=== PATIENT | male | born 1960 | race Caucasian/White ===

== ENCOUNTER 2020-05-23 22:41 | Inpatient (IN) | payer MEDICAID, SELFPAY ==
[~2020-05-23] VITALS: Ht 180.3 cm; Wt 78.9 kg
--- NOTE | 2020-05-23 22:43 | NUR ---
AUDREY FROM HOME, TAKEN TO BED #2
[2020-05-23] MEDS ORDERED: NACL 0.9% 1,000 ML IV SCH (22:51)
[2020-05-23 22:52] VITALS: BP 102/75
[2020-05-23] MEDS ORDERED: cefTRIAXone 1,000 MG in DEXT 5% MINI-BAG PLUS 50 ML IV ONE (22:55)
[2020-05-23] MEDS ORDERED: cefTRIAXone 1,000 MG VIAL ONE (23:00)
--- NOTE | 2020-05-23 23:00 | NUR ---
60 YO M BIBA FOR C/C OF GENERALIZED WEAKNESS AND SOB WITH NON PRODUCTIVE COUGH X3 DAYS. PT IS A&0 X3 AND STATES HE HAS NOT BEEN IN CONTACT WITH ANY COVID POSITIVE PTS. S1S2 HEARD, LUNG SOUNDS ARE CLEAR THROUGHOUT, BOWEL SOUNDS NORMOACTIVE THROUGHOUT. PT STATES HE HAS HAD CHANGES IN APPETITE WITH NAUSEA AND NO VOMITING OR DIARRHEA. PERIPHERAL PULESES ARE EQUAL AND REGULAR. PT STATES HIS LEGS BEGAN SWELLING YESTERDAY, 2 + NON PITTING EDEMAL IN BLE. PT PLACED ON UPHOLSTERY AUTO TRIMMER AND 2L NC FOR COMFORT. BED LOCKED AND IN LOWEST POSITION. SIDE RAILS X2. NKA NO MED HX NO RX
--- NOTE | 2020-05-23 23:10 | NUR ---
IV ESTABLISHED. BLOOD COLLECTED AND SENT TO LAB.
--- NOTE | 2020-05-23 23:25 | NUR ---
COVID SWAB AND URINE COLLECTED AND SENT TO LAB
[2020-05-23 23:28] LABS: BASOPHILS # (AUTO) 0.1 K/uL (0.00-0.22); BASOPHILS % (AUTO) 0.8 % (0.0-2.0); EOSINOPHILS % (AUTO) 0.2 % (0.0-4.0); HEMATOCRIT 46.4 % (36-52); HEMOGLOBIN 14.9 g/dL (12.0-18.0); LYMPHOCYTES # (AUTO) 1.4 K/uL (2.0-11.5); LYMPHOCYTES % (AUTO) 11.9 % (20.5-51.1); MEAN CORPUSCULAR HEMOGLOBIN 30 pg (27-31); MEAN CORPUSCULAR HGB CONC 32 g/dL (33-37); MEAN CORPUSCULAR VOLUME 94.4 fL (80-94); MONOCYTES # (AUTO) 1.4 K/uL (0.8-1.0); MONOCYTES % (AUTO) 11.9 % (1.7-9.3); NEUTROPHILS # (AUTO) 9.1 K/uL (1.8-7.7); NEUTROPHILS % (AUTO) 75.2 % (42.2-75.2); PLATELET COUNT (AUTO) 154 K/uL (140-450); RED BLOOD CELL COUNT(AUTO) 4.92 MIL/uL (4.20-6.10); RED CELL DISTRIBUTION WIDTH 14.9 % (11.6-13.7); WHITE BLOOD COUNT (AUTO) 12.1 K/uL (4.8-10.8)
[2020-05-23 23:42] LABS: APPEARANCE,URINE CLEAR (CLEAR); BILIRUBIN,URINE 2+ (NEGATIVE); BLOOD, URINE TRACE-I (NEGATIVE); COLOR,URINE AMBER (YELLOW); LEUKOCYTE ESTERASE ,URINE NEGATIVE (NEGATIVE); NITRITE, URINE NEGATIVE (NEGATIVE); PH,URINE 5.5 (5.0-9.0); UGLUCOSE NEGATIVE (NEGATIVE)
[2020-05-23 23:43] LABS: ANION GAP 16.8 (8-16); CARBON DIOXIDE 22.8 mmol/L (21-32); CREATININE 1.5 mg/dL (0.6-1.3); POTASSIUM 4.6 mmol/L (3.5-5.1); TOTAL BILIRUBIN 2.4 mg/dL (0.0-1.0)
--- NOTE | 2020-05-23 23:46 | NUR ---
RAD AT BEDSIDE
[2020-05-23 23:59] LABS: RBC,URINE 0-5 /HPF (0-5); WBC,URINE 0-5 /HPF (0-5)
--- NOTE | 2020-05-24 01:38 | NUR ---
PT SLEEPING COMFORTABLY IN BED. EQUAL CHEST RISE AND FALL. SAFETY MEASURES IN PLACE.
[2020-05-24] MEDS ORDERED: HYDROcodone/APAP 5/325 MG 1 TAB TAB PO PRN (01:45)
[2020-05-24] MEDS ORDERED: FUROSEMIDE 40 MG/4 ML VIAL IVP SCH (01:45)
[2020-05-24] MEDS ORDERED: MORPHINE SULFATE 2 MG/ML SYR IVP PRN (01:45)
[2020-05-24] MEDS ORDERED: ONDANSETRON 4 MG/2 ML VIAL IM/IVP PRN (01:45)
[2020-05-24] MEDS ORDERED: DOCUSATE SODIUM 100 MG GELCAP PO PRN (01:45)
[2020-05-24] MEDS ORDERED: ACETAMINOPHEN 325 MG TAB PO PRN (01:45)
[2020-05-24 02:36] LABS: MAGNESIUM 1.8 mg/dL (1.8-2.4); PHOSPHORUS 4.3 mg/dL (2.5-4.9); THYROID STIMULATING HORMONE 3.17 uIU/mL (0.34-3.74)
--- NOTE | 2020-05-24 02:39 | NUR ---
PT SLEEPING COMFORTABLY IN BED. EQUAL CHEST RISE AND FALL. SAFETY MEASURES IN PLACE.
[2020-05-24 02:46] LABS: PROTHROMBIN TIME 16.4 secs (10.8-13.4)
[2020-05-24 02:57] LABS: BARBITURATE, URINE NEGATIVE ng/ml (NEG <=200); BENZODIAZEPINE, URINE NEGATIVE ng/mL (NEG <=200); CANNABINOID, URINE NEGATIVE ng/mL (NEG <=50); COCAINE, URINE NEGATIVE ng/mL (NEG <=300); OPIATE, URINE NEGATIVE ng/mL (NEG <=2000); PHENCYCLIDINE SCREEN,URINE NEGATIVE ng/mL (NEG <=25)
--- NOTE | 2020-05-24 03:15 | NUR ---
GAVE IVP OF 40 MG LASIX AFTER VERBAL ORDER FROM ADMITTING PHYSICIAN
[2020-05-24] MEDS ORDERED: FUROSEMIDE 40 MG/4 ML VIAL IVP ONE (03:17)
--- NOTE | 2020-05-24 04:09 | NUR ---
[facility] LAB VALUE REPORTING: LACTIC ACID: 2.4 JUANPABLO HOFFMANN.
[2020-05-24] MEDS ORDERED: NACL 0.9% 250 ML IV SCH (04:15)
--- NOTE | 2020-05-24 04:30 | NUR ---
PT SLEEPING COMFORTABLY IN BED. EQUAL CHEST RISE AND FALL. SAFETY MEASURES IN PLACE.
--- NOTE | 2020-05-24 05:45 | NUR ---
MRSA SWAB COLLECTED AND SENT TO LAB
[2020-05-24] MEDS ORDERED: cefTRIAXone 1,000 MG VIAL ONE (05:49)
[2020-05-24] MEDS: NACL 0.9% 1,000 ML IV SCH (06:45)
[2020-05-24 06:56] LABS: BASOPHILS # (AUTO) 0.1 K/uL (0.00-0.22); BASOPHILS % (AUTO) 0.6 % (0.0-2.0); EOSINOPHILS % (AUTO) 0.3 % (0.0-4.0); HEMATOCRIT 43.7 % (36-52); HEMOGLOBIN 14.2 g/dL (12.0-18.0); LYMPHOCYTES # (AUTO) 1.5 K/uL (2.0-11.5); LYMPHOCYTES % (AUTO) 11.9 % (20.5-51.1); MEAN CORPUSCULAR HEMOGLOBIN 31 pg (27-31); MEAN CORPUSCULAR HGB CONC 33 g/dL (33-37); MEAN CORPUSCULAR VOLUME 93.7 fL (80-94); MONOCYTES # (AUTO) 1.4 K/uL (0.8-1.0); MONOCYTES % (AUTO) 10.9 % (1.7-9.3); NEUTROPHILS # (AUTO) 9.8 K/uL (1.8-7.7); NEUTROPHILS % (AUTO) 76.3 % (42.2-75.2); PLATELET COUNT (AUTO) 142 K/uL (140-450); RED BLOOD CELL COUNT(AUTO) 4.66 MIL/uL (4.20-6.10); WHITE BLOOD COUNT (AUTO) 12.8 K/uL (4.8-10.8)
[2020-05-24 07:06] LABS: ANION GAP 17.7 (8-16); CARBON DIOXIDE 20.2 mmol/L (21-32); CREATININE 1.2 mg/dL (0.6-1.3); POTASSIUM 3.9 mmol/L (3.5-5.1)
[2020-05-24 07:12] LABS: CHOL/HDL RATIO 4.3 (1-4.5)
[2020-05-24 07:16] LABS: MAGNESIUM 1.7 mg/dL (1.8-2.4); PHOSPHORUS 3.7 mg/dL (2.5-4.9)
[2020-05-24 07:50] VITALS: BP 121/74
--- NOTE | 2020-05-24 07:50 | NUR ---
Patient will be admitted to care of [facility]. Admited to ICU. Will go to room 7. Belongings list completed. Report to COLIN OLIVARES.
--- NOTE | 2020-05-24 07:50 | NUR ---
PT ADMITTED FROM ER AT THIS TIME. PT AAOX4, NO DISTRESS NOTED, DENIES PAIN, COOPERATIVE. RESPIRATIONS EVEN AND UNLABORED ON O2 VIA NC AT 2L. IV IN PLACE, PATENT AND ASYMPTOMATIC INFUSING PER ORDER IN L AC 20G. VITALS UPON ADMISSION: HR 97, BP 121/74, O2 SAT 96% RR 22, TEMP 97.6. PT BREATHING THROUGH MOUTH INSTRUCTED TO BREATH THROUGH NOSE INCREASING O2 SAT. SKIN INTACT. CONTINENT. DROPLET PRECAUTIONS IN PLACE FOR R/O COVID-19. SAFETY MEASURES IN PLACE, CALL LIGHT WITHIN REACH. BED IN LOW POSITION. WILL CONTINUE TO MONITOR.
[2020-05-24] MEDS ORDERED: LOVENOX 1MG/KG Q12H SUBQ SCH (08:50)
[2020-05-24] MEDS ORDERED: AZITHROMYCIN 500 MG in DEXTROSE 5% 250 ML IV SCH (09:00)
[2020-05-24] MEDS: LACTOBACILLUS RHAMNOSUS GG 1 EACH CAP PO SCH (09:10)
[2020-05-24] MEDS: FUROSEMIDE 20 MG/2 ML VIAL IVP SCH ×2 (09:10→20:41)
--- NOTE | 2020-05-24 09:24 | NUR ---
MEDICATIONS ADMINISTERED PER ORDER. PT TOLERATED WELL, NO DISTRESS NOTED. DENIES PAIN. RESPIRATIONS EVEN AND UNLABORED ON 2L O2 VIA NC. EATING BREAKFAST AT THIS TIME. WILL CONTINUE TO MONITOR.
[2020-05-24] MEDS ORDERED: MAG SULF 2000 MG/WATER PREMIX 50 ML IV SCH (09:30)
[2020-05-24 10:30] VITALS: BP 99/71
--- NOTE | 2020-05-24 11:52 | NUR ---
PT IN BED ASLEEP, NO DISTRESS NOTED. RESPIRATIONS EVEN AND UNLABORED ON O2 VIA NC. SAFETY MEASURES IN PLACE. CALL LIGHT WITHIN REACH, WILL CONTINUE TO MONITOR.
[2020-05-24 12:00] VITALS: BP 102/81
--- NOTE | 2020-05-24 13:50 | NUR ---
FINANCIAL SYSTEMS MANAGER NOTE: SW CONTACTED ICU NURSING STATION AND SPOKE TO DAVIE. SW REQUESTED TO SPEAK TO PATIENT. SW WAS UNABLE TO MEET WITH PATIENT AT BEDSIDE DUE TO MEDICAL CONDITION. DAVIE TRANSFERRED SW TO COLIN OLIVARES. ELISE STATED THAT HE WOULD HAVE PATIENT CALL SW BACK. Addendum: 05/24/20 at 1419 by Serge SIMS [facility] Patient: Jose Alfredo Mckeon : 1960 Age/Sex: 60/M Unit#: [id number] Room/Bed: IC07/A User: Serge SIMS Date: 05/24/20 14:08 Type: CM Discharge Plan Assessment Patient's Orientation Person Situation Place Time Information Provided By PATIENT Biotech Production Specialist, Realtionship and Phone Number N/A - PATIENT STATED THAT HE WILL PROVIDE NURSING STAFF WITH EMERGENCY CONTACT. Healthcare Power of Geological E Logger No Does Patient Have a POLST No Identifying Problems No Social Work Triggers Is A Social Work Consult Needed No Mandate Report Filed No Explanation Of Identifying Problems PATIENT IS A 60-YEAR-OLD MALE ADMITTED FOR PNEUMONIA AND COVID R/O. PATIENT DENIES PMHX. Admitted From Home Pre-Admission Level Of Functioning Status Independent/Ambulatory Prior Resources/Services Used In Last 12 Months No Prior Resources Used Prior DME No Prior DME Used Living Situation Apartment 2 Story Patient Had Caregiver No Home Support No Caregiver Issues Explanation Of Home Support PATIENT LIVES WITH A ROOMMATE. Financial Issues No Known Financial Issue Factors/Needs No D/C Needs Identified Pt/Rep Participated In Discharge Plan Yes Discharge Plan Comments TENTATIVE DISCHARGE PLAN IS FOR PATIENT TO RETURN HOME. DC Plan Status Initiated
[2020-05-24 14:00] VITALS: BP 107/81
--- NOTE | 2020-05-24 14:13 | NUR ---
PT GIVEN PHONE TO TALK TO LUIS ANTONIO FROM CASE MANAGEMENT.
--- NOTE | 2020-05-24 15:28 | NUR ---
05/24/20 RD INITIAL ASSESSMENT COMPLETED PLEASE REFER TO NUTRITION ASSESSMENT UNDER CARE ACTIVITY FOR ESTIMATED NUTRITIONAL NEEDS. 1. RECOMMEND MECHANICAL SOFT CARDIAC DIET TOLERATED 2. RECOMMEND ENSURE TID 3. ENCOURAGE INCREASING PO INTAKE 4. RD TO FOLLOW-UP 2-3 DAYS, HIGH RISK ZAIN KOLB, RD
--- NOTE | 2020-05-24 15:35 | NUR ---
DISCHARGE PLANNING: THIS IS A 60 Y/O MALE PATIENT FROM HOME, WHO IS BIBA DUE TO SOB, COUGH AND GENERALIZED WEAKNESS. NO PAST MEDICAL HISTORY. INITIAL DIAGNOSIS OF PNA; POSSIBLE COVID. CURRENT LABS INCLUDE WBC 12.8, H/H 14.2/43.7, NA/K 137/3.9, BUN/CREA 26/1.2, LACTIC ACID 2.3 AND MAG 1.7 AND AMMONIA 53. UDS POSITIVE. COVID PENDING. ON O2 AT 2LPM/NC. DC PLAN PENDING ON PATIENT'S RESPONSE TO TREATMENT. Addendum: 05/25/20 at 1539 by Marbella Garcia CM ON O2 AT 2 LPM/NC, O2 SAT 94%. ON AZITHROMYCIN, ROCEPHIN AND LASIX IV. FOR THORACENTESIS TODAY. ECHO DONE. CARDIO AND PULMO CONSULTS IN PLACE. Addendum: 05/28/20 at 1057 by Marbella Garcia CM FOR PA HOME TODAY.
--- NOTE | 2020-05-24 16:37 | NUR ---
PT RESTING IN BED, NO DISTRESS NOTED, DENIES PAIN, RESPIRATIONS EVEN AND UNLABORED ON 2L O2 VIA NC. SAFETY MEASURES IN PLACE. WILL CONTINUE TO MONITOR.
--- NOTE | 2020-05-24 18:14 | NUR ---
Echocardiogram pending.
--- NOTE | 2020-05-24 18:55 | NUR ---
PT OFFERED HIS DINNER, STATES HE IS NOT TOO HUNGRY BUT WILL TRY TO EAT. DENIES PAIN, NO DISTRESS NOTED. RESPIRATIONS EVEN AND UNLABORED ON 2L O2 VIA NC. SAFETY MEASURES IN PLACE, CALL LIGHT WITHIN REACH. WILL CONTINUE TO MONITOR.
--- NOTE | 2020-05-24 19:23 | NUR ---
REPORT GIVEN TO NIGHT NURSE FOR CONTINUITY OF CARE.
[2020-05-24 20:00] VITALS: BP 119/80
--- NOTE | 2020-05-24 20:30 | NUR ---
PT TRANSFERRED TO TELEMETRY FLOOR REPORT GIVEN TO RN NO SIGNS OF DISTRESS AT TIME OF TRANSFER
--- NOTE | 2020-05-24 20:31 | NUR ---
REPORT RECEIVED FROM ICU NURSE AT BEDSIDE. PT IN STABLE CONDITION. AAOX4. INTRODUCED SELF TO PT. NO COMPLAINTS OF PAIN. PT SOB AT TIMES ON RA BUT DOES NOT REQUIRE O2. AFEBRILE. PT IS AMBULATORY. PT HAS BATHROOM PRIVILEGES. PT ON REGULAR DIET. IV SITE L AC 20G RUNNING NS@10ML/HR TKO PATENT AND INTACT. SKIN WARM, DRY, AND INTACT WITH NO OPEN WOUNDS. BED LOCKED IN LOW POSITION. CALL [place] WITHIN REACH. SAFETY PRECAUTIONS IN PLACE. ALL NEEDS MET AT THIS TIME.
[2020-05-24] MEDS: ENOXAPARIN 80 MG/0.8 ML SYR SUBQ SCH (20:42)
--- NOTE | 2020-05-24 20:42 | NUR ---
LASIX GIVEN IVP. LOVENOX GIVEN SUBQ. PT TOLERATED WELL.
--- NOTE | 2020-05-24 22:20 | NUR ---
PT AWAKE AND ALERT WATCHING TV. NO S/S OF DISTRESS NOTED. WILL CONTINUE TO MONITOR.
[2020-05-25] VITALS: BP 108/78
--- NOTE | 2020-05-25 00:15 | NUR ---
PT AWAKE AND ALERT HAVING A SANDWICH. PT SHOWS NO S/S OF DISTRESS. NO COMPLAINTS OF PAIN. NO SOB. AFEBRILE. WILL CONTINUE TO MONITOR.
[2020-05-25] MEDS: NACL 0.9% 1,000 ML IV SCH (01:41)
--- NOTE | 2020-05-25 02:15 | NUR ---
PT SLEEPING COMFORTABLY BUT AROUSABLE. NO S/S OF DISTRESS NOTED. RESPIRATIONS EVEN, UNLABORED, AND WNL. WILL CONTINUE TO MONITOR.
[2020-05-25 04:00] VITALS: BP 111/77
--- NOTE | 2020-05-25 05:45 | NUR ---
JHON MEZA AND RUNNING.
--- NOTE | 2020-05-25 07:21 | NUR ---
RECEIVED REPORT FROM CNC OPERATOR MACHINIST RN FOR CONTINUITY OF CARE. PT IS AAOX4, COOPERATIVE AND ABLE TO MAKE NEEDS KNOWN. PT ON 2L NC SATING 96%. SKIN INTACT. PT HAS LEFT AC 20G INFUSING NS @ 20ML/HR. DISCUSSED POC WITH PT AND PT VERBALIZED UNDERSTANDING. ALL SAFETY MEASURES IN PLACE. WILL ROUND FREQUENTLY ON PT. THROUGHOUT THE SHIFT.
[2020-05-25 08:00] VITALS: BP 113/69
[2020-05-25 08:06] LABS: BASOPHILS # (AUTO) 0.1 K/uL (0.00-0.22); BASOPHILS % (AUTO) 0.9 % (0.0-2.0); EOSINOPHILS % (AUTO) 0.2 % (0.0-4.0); HEMATOCRIT 44.8 % (36-52); HEMOGLOBIN 14.6 g/dL (12.0-18.0); LYMPHOCYTES # (AUTO) 1.4 K/uL (2.0-11.5); LYMPHOCYTES % (AUTO) 10.7 % (20.5-51.1); MEAN CORPUSCULAR HEMOGLOBIN 31 pg (27-31); MEAN CORPUSCULAR HGB CONC 33 g/dL (33-37); MEAN CORPUSCULAR VOLUME 93.7 fL (80-94); MONOCYTES # (AUTO) 1.3 K/uL (0.8-1.0); NEUTROPHILS # (AUTO) 10.5 K/uL (1.8-7.7); NEUTROPHILS % (AUTO) 78.2 % (42.2-75.2); PLATELET COUNT (AUTO) 154 K/uL (140-450); RED BLOOD CELL COUNT(AUTO) 4.78 MIL/uL (4.20-6.10); RED CELL DISTRIBUTION WIDTH 15.3 % (11.6-13.7); WHITE BLOOD COUNT (AUTO) 13.4 K/uL (4.8-10.8)
[2020-05-25 08:08] LABS: ALBUMIN 2.7 g/dL (3.4-5.0); ANION GAP 17.5 (8-16); CARBON DIOXIDE 21.6 mmol/L (21-32); CREATININE 1.3 mg/dL (0.6-1.3); POTASSIUM 4.1 mmol/L (3.5-5.1)
[2020-05-25 08:18] LABS: HEPATITIS A ANTIBODY IGM Negative (Negative); HEPATITIS B CORE AB TOTAL Negative (Negative); HEPATITIS B SURFACE ANTIBODY Non Reactive (.); HEPATITIS B SURFACE ANTIGEN Negative (Negative)
[2020-05-25] MEDS: ENOXAPARIN 80 MG/0.8 ML SYR SUBQ SCH ×2 (09:00→22:00)
[2020-05-25] MEDS: AZITHROMYCIN 250 MG in DEXTROSE 5% 250 ML IV SCH (09:01)
[2020-05-25] MEDS: LACTOBACILLUS RHAMNOSUS GG 1 EACH CAP PO SCH (09:02)
[2020-05-25] MEDS: FUROSEMIDE 20 MG/2 ML VIAL IVP SCH ×3 (09:02→22:01)
--- NOTE | 2020-05-25 09:21 | NUR ---
ADMIN MORNING MEDS. PT TOLERATED WELL. ALL NEEDS MET. WILL CONTINUE TO ROUND FREQ ON PT.
[2020-05-25 09:46] LABS: PHOSPHORUS 3.5 mg/dL (2.5-4.9)
--- NOTE | 2020-05-25 11:45 | NUR ---
PT RESTING IN BED. ALL NEEDS MET,
[2020-05-25 12:00] VITALS: BP 119/71
--- NOTE | 2020-05-25 13:40 | NUR ---
PT ASLEEP. ALL NEEDS MET
--- NOTE | 2020-05-25 15:42 | NUR ---
PT WATCHING TV. ALL NEEDS MET.,
[2020-05-25 16:00] VITALS: BP 108/79
--- NOTE | 2020-05-25 17:58 | NUR ---
PT EATING DINNER. ALL NEEDS MET.
--- NOTE | 2020-05-25 19:04 | NUR ---
WILL ENDORSE PT TO PIANO CASE AND BENCH ASSEMBLER FOR CONTINUITY OF CARE. PT IN STABLE CONDITION AT THIS TIME.
--- NOTE | 2020-05-25 19:05 | NUR ---
RECEIVED ENDORSEMENT FROM AM SHIFT RN. PATIENT IS AOX4. ON 2LPM NC SATTING AT 98%. NO SOB, DENIES PAIN. IV SITE AT LAC 20G. INTACT. ASSESSMENT DONE. TELE MONITOR ATTACHED. PLAN OF CARE WAS DISCUSSED, CALL LIGHT WITHIN REACH, WILL CONTINUE TO MONITOR.
[2020-05-25 20:00] VITALS: BP 91/60
--- NOTE | 2020-05-25 21:45 | NUR ---
HELD LASIX 20MG IVP DUE TO LOW BP OF 91/60. HR 94. DR. LOPEZ AWARE. WILL CONTINUE TO MONITOR.
[2020-05-25 22:19] LABS: APPEARANCE,SPUN,BODY FLUID HAZY (CLEAR); APPEARANCE,UNSPUN,BODY FLUID SLIGHTLY CLOUDY (CLEAR); COLOR,BODY FLUID LT YELLOW (LT YELLOW); SPECIMENTYPE,BODY FLUID THORACENTESIS
[2020-05-25 22:22] LABS: RBC, BODY FLUID 277 /cu. mm.; TOTAL VOLUME,BODY FLUID 1100 mL; WBC, BODY FLUID 109 /cu. mm.
[2020-05-25 22:29] LABS: POLYNUCLEAR, BODY FLUID 11 %
[2020-05-26] VITALS: BP 93/63
--- NOTE | 2020-05-26 | NUR ---
V/S TAKEN AND RECORDED. KEPT CLEAN, DRY AND COMFORTABLE.
[2020-05-26] MEDS: NACL 0.9% 1,000 ML IV SCH (01:41)
--- NOTE | 2020-05-26 02:00 | NUR ---
PATIENT IS SLEEPING. RESPIRATION EVEN AND UNLABORED. GAVE WARM BLANKET TO PATIENT PER PT REQUEST.
[2020-05-26 04:00] VITALS: BP 103/67
--- NOTE | 2020-05-26 04:30 | NUR ---
PATIENT IS ASLEEP. CALL LIGHT WITHIN REACH. WILL CONTINUE TO MONITOR.
[2020-05-26 05:56] LABS: GLUCOSE,BODY FLUID 137 mg/dL
--- NOTE | 2020-05-26 06:30 | NUR ---
PATIENT IS IN STABLE CONDITION. NO DISTRESS NOTED. WILL ENDORSE TO AM SHIFT RN FOR CONTINUITY OF CARE.
--- NOTE | 2020-05-26 07:30 | NUR ---
RECEIVED BEDSIDE REPORT FROM IRRIGATION FOREMAN NURSE FIORELLA FOR CONTINUITY OF CARE. PT IS AWAKE AND WATCHING TV ON BED AT THIS TIME. RESPIRATION EVEN AND UNLABORED ON 2 LPM VIA NC. DENIED PAIN, SOB AND DIZZINESS. NO SIGNS OF DISTRESS NOTED. IV ON LAC 20, CLEAN AND INTACT, INFUSING NS 10ML/HR. SKIN CLEAN AND DRY. PT IS BED REST AND ABLE TO USE URANAL BY BEDSIDE. ABDOMEN SOFT AND ROUND. TELE MONITOR IN PLACE. SAFETY MEASURES IN PLACE. BED IN LOW POSITION,BED ALARM ACTIVATED, AND CALL LIGHT WITHIN REACH.
[2020-05-26 08:00] VITALS: BP 101/66
[2020-05-26] MEDS: ENOXAPARIN 80 MG/0.8 ML SYR SUBQ SCH ×2 (09:34→21:04)
[2020-05-26] MEDS: AZITHROMYCIN 250 MG in DEXTROSE 5% 250 ML IV SCH (09:36)
[2020-05-26] MEDS: LACTOBACILLUS RHAMNOSUS GG 1 EACH CAP PO SCH (09:36)
[2020-05-26] MEDS: LISINOPRIL 5 MG TAB PO SCH (09:36)
--- NOTE | 2020-05-26 09:39 | NUR ---
ADMINISTERED MEDS PER MD ORDER, MEDS EDUCATION PROVIDED, AND PT VERBALIZED UNDERSTANDING, PT TOLERATED PO AND SUBQ WELL. PT AWAKE AND WATCHING TV AT THIS TIME. DENIED PAIN, SOB AND DIZZINESS. NO SIGNS OF DISTRESS NOTED. TELE MONITOR ATTACHED. SAFETY MEASURES IN PLACE. INSTRUCTED PT TO USE THE CALL LIGHT FOR ANY ASSISTANCE AND PT WAS AWARE.
[2020-05-26 10:46] LABS: BASOPHILS % (AUTO) 0.2 % (0.0-2.0); EOSINOPHILS % (AUTO) 0.2 % (0.0-4.0); HEMATOCRIT 45.3 % (36-52); HEMOGLOBIN 14.8 g/dL (12.0-18.0); LYMPHOCYTES # (AUTO) 1.1 K/uL (2.0-11.5); LYMPHOCYTES % (AUTO) 8.9 % (20.5-51.1); MEAN CORPUSCULAR HEMOGLOBIN 30 pg (27-31); MEAN CORPUSCULAR HGB CONC 33 g/dL (33-37); MEAN CORPUSCULAR VOLUME 93.2 fL (80-94); MONOCYTES # (AUTO) 1.1 K/uL (0.8-1.0); MONOCYTES % (AUTO) 8.8 % (1.7-9.3); NEUTROPHILS # (AUTO) 9.9 K/uL (1.8-7.7); NEUTROPHILS % (AUTO) 81.9 % (42.2-75.2); PLATELET COUNT (AUTO) 175 K/uL (140-450); RED BLOOD CELL COUNT(AUTO) 4.86 MIL/uL (4.20-6.10); RED CELL DISTRIBUTION WIDTH 14.9 % (11.6-13.7); WHITE BLOOD COUNT (AUTO) 12.1 K/uL (4.8-10.8)
[2020-05-26 10:55] LABS: ANION GAP 14.2 (8-16); CARBON DIOXIDE 22.9 mmol/L (21-32); CREATININE 1.2 mg/dL (0.6-1.3); POTASSIUM 4.1 mmol/L (3.5-5.1)
[2020-05-26 11:28] LABS: MAGNESIUM 1.8 mg/dL (1.8-2.4)
--- NOTE | 2020-05-26 11:30 | NUR ---
PT AWAKE AND WATCHING TV ON BED AT THIS TIME. DENIED PAIN, SOB AND DIZZINESS. NO SIGNS OF DISTRESS NOTED. TELE MONITOR ATTACHED AND SAFETY MEASURES IN PLACE. BED IN LOW POSITION AND CALL LIGHT WITHIN REACH. INSTRUCTED PT TO USE THE CALL LIGHT FOR ANY ASSISTANCE AND PT WAS AWARE.
[2020-05-26 12:00] VITALS: BP 99/60
--- NOTE | 2020-05-26 13:40 | NUR ---
PT IS RESTING ON BED AT THIS TIME. DENIED PAIN, SOB AND DIZZINESS. NO SIGNS OF DISTRESS NOTED. TELE MONITOR ATTACHED. SAFETY MEASURES IN PLACE. BED IN LOW POSITION AND CALL LIGHT WITHIN REACH. INSTRUCTED PT TO USE THE CALL LIGHT FOR ANY ASSISTANCE AND PT SAID OK.
--- NOTE | 2020-05-26 15:37 | NUR ---
PATIENT IS ASLEEP COMFORTABLY ON BED, EVEN AND UNLABORED CHEST RISES NOTED. NO SIGNS OF DISTRESS NOTED. TELE MONITOR ATTACHED. SAFETY MEASURES IN PLACE.
--- NOTE | 2020-05-26 15:54 | NUR ---
05/26/2020 FOLLOW UP COMPLETED PLEASE REFER TO NUTRITION PROGRESS NOTE UNDER CARE ACTIVITY FOR ESTIMATED NUTRITION NEEDS. RD RECOMMENDATIONS: 1. CONTINUE MECHANICAL SOFT CARDIAC DIET TOLERATED 2. CONTINUE ENSURE TID 3. ENCOURAGE INCREASING PO INTAKE 4. RD TO FOLLOW-UP 3-5 DAYS, MODERATE RISK. 5. NUTRITION ON HEART HEALTHY DIET PROVIDED TOPT. ALEX ANGEL, RD
[2020-05-26 16:00] VITALS: BP 96/60
--- NOTE | 2020-05-26 17:31 | NUR ---
PT IS WATCHING TV ON BED COMFORTABLY. DENIES PAIN, SOB AND DIZZINESS. NO SIGNS OF DISTRESS NOTED. TELE MONITOR ATTACHED. SAFETY MEASURES IN PLACE. INSTRUCTED PT TO USE THE CALL LIGHT FOR ANY ASSISTANCE AND PT WAS AWARE.
--- NOTE | 2020-05-26 19:21 | NUR ---
RECEIVED PATIENT IN STABLE CONDITION FROM AM SHIFT NURSE FOR CONTINUITY OF CARE. RESPIRATIONS EVEN, UNLABORED. NO C/O PAIN. NO S/S ACUTE DISTRESS. SKIN WARM, DRY. IV SITE NOTED TO LEFT AC 20G PATENT/INTACT, INFUSING FLUIDS WELL. SAFETY PRECAUTIONS IN PLACE. CALL LIGHT WITHIN REACH.
--- NOTE | 2020-05-26 19:21 | NUR ---
ENDORSED PT AT BEDSIDE TO ENGRAVER PANTOGRAPH NURSE FOR CONTINUITY OF CARE. PT IS AWAKE AND WATCHING TV ON BED. NO SIGNS OF DISTRESS NOTED. PT IS IN STABLE CONDITION. TELE MONITOR ATTACHED. SAFETY MEASURES IN PLACE.
[2020-05-26 20:00] VITALS: BP 95/59
--- NOTE | 2020-05-26 21:00 | NUR ---
PATIENT AWAKE AND IN STABLE CONDITION. NO C/O PAIN. NO S/S ACUTE DISTRESS. ENCOURAGED INTAKE TOLERATED. PATIENT VERBALIZED UNDERSTANDING BUT NEEDS REINFORCEMENT. CALL LIGHT WITHIN REACH.
--- NOTE | 2020-05-26 23:10 | NUR ---
PATIENT CONTINUES IN STABLE CONDITION. DUE MEDS GIVEN. NO C/O PAIN. NO S/S ACUTE DISTRESS. CALL LIGHT WITHIN REACH. WILL CONTINUE TO MONITOR.
[2020-05-27] VITALS: BP 98/62
[2020-05-27] MEDS: NACL 0.9% 1,000 ML IV SCH (01:41)
--- NOTE | 2020-05-27 02:05 | NUR ---
PATIENT ASLEEP AND IN STABLE CONDITION. NO S/S ACUTE DISTRESS. CALL LIGHT WITHIN REACH.
[2020-05-27 04:00] VITALS: BP 100/68
--- NOTE | 2020-05-27 04:20 | NUR ---
MADE ROUNDS. PATIENT CONTINUES IN STABLE CONDITION. NO S/S ACUTE DISTRESS. CALL LIGHT WITHIN REACH.
--- NOTE | 2020-05-27 06:23 | NUR ---
PATIENT ASLEEP. DUE MEDS GIVEN ORDERED. NO S/S ACUTE DISTRESS. CALL LIGHT WITHIN REACH.
--- NOTE | 2020-05-27 07:10 | NUR ---
RECEIVED PATIENT IN STABLE CONDITION FROM DRESSING ROOM PORTER RN, SYLVIA, FOR CONTINUITY OF CARE. PATIENT ASLEEP AND IN BED. RESPIRATIONS EVEN, UNLABORED. NO C/O PAIN. NO S/S ACUTE DISTRESS. SKIN WARM, DRY. IV SITE NOTED TO LEFT AC 20G PATENT/INTACT WITH NS RUNNING AT 10ML/HR, INFUSING FLUIDS WELL. SAFETY PRECAUTIONS IN PLACE. CALL LIGHT WITHIN REACH. POC IS DISCUSSED. WILL CONTINUE TO MONITOR.
[2020-05-27 07:14] LABS: ANION GAP 10.9 (8-16); CARBON DIOXIDE 22.9 mmol/L (21-32); CREATININE 1.1 mg/dL (0.6-1.3); POTASSIUM 3.8 mmol/L (3.5-5.1)
[2020-05-27 07:19] LABS: BASOPHILS # (AUTO) 0.1 K/uL (0.00-0.22); BASOPHILS % (AUTO) 0.7 % (0.0-2.0); EOSINOPHILS % (AUTO) 0.3 % (0.0-4.0); HEMOGLOBIN 13.9 g/dL (12.0-18.0); LYMPHOCYTES # (AUTO) 1.3 K/uL (2.0-11.5); MEAN CORPUSCULAR HEMOGLOBIN 31 pg (27-31); MEAN CORPUSCULAR HGB CONC 33 g/dL (33-37); MEAN CORPUSCULAR VOLUME 93.6 fL (80-94); MONOCYTES # (AUTO) 1.3 K/uL (0.8-1.0); MONOCYTES % (AUTO) 10.7 % (1.7-9.3); NEUTROPHILS # (AUTO) 9.2 K/uL (1.8-7.7); NEUTROPHILS % (AUTO) 77.3 % (42.2-75.2); PLATELET COUNT (AUTO) 171 K/uL (140-450); RED BLOOD CELL COUNT(AUTO) 4.49 MIL/uL (4.20-6.10)
[2020-05-27 07:57] LABS: MAGNESIUM 1.9 mg/dL (1.8-2.4); PHOSPHORUS 2.9 mg/dL (2.5-4.9)
[2020-05-27 08:00] VITALS: BP 97/57
--- NOTE | 2020-05-27 09:20 | NUR ---
V/S TAKEN BP 102/59, HR 92, SAO2 96%, TEMP 98.2F, VERBALIZES NO PAIN. WILL CONTINUE TO MONITOR.
--- NOTE | 2020-05-27 09:30 | NUR ---
MORNING MEDICATIONS GIVEN. NO SIGNS OF DISTRESS NOTED. WILL CONTINUE TO MONITOR.
[2020-05-27] MEDS: ENOXAPARIN 80 MG/0.8 ML SYR SUBQ SCH ×2 (09:37→21:38)
[2020-05-27] MEDS: AZITHROMYCIN 250 MG in DEXTROSE 5% 250 ML IV SCH (09:39)
[2020-05-27] MEDS: LACTOBACILLUS RHAMNOSUS GG 1 EACH CAP PO SCH (09:39)
[2020-05-27] MEDS: LISINOPRIL 5 MG TAB PO SCH (09:39)
[2020-05-27] MEDS: FUROSEMIDE 40 MG TAB PO SCH (09:39)
[2020-05-27] MEDS ORDERED: LISI-424 PO (10:06)
[2020-05-27] MEDS ORDERED: CEPH-1019 PO (10:06)
[2020-05-27] MEDS ORDERED: FURO40TA9 PO (10:06)
[2020-05-27] MEDS ORDERED: AZIT250T3 PO (10:06)
[2020-05-27] MEDS ORDERED: ASPI-1822 PO (10:06)
[2020-05-27 12:00] VITALS: BP 100/61
--- NOTE | 2020-05-27 12:10 | NUR ---
V/S TAKEN AND IS WNL. PATIENT VERBALIZES NO PAIN. PATIENT IS ASLEEP AND IN BED. WILL CONTINUE TO MONITOR.
[2020-05-27 16:00] VITALS: BP 99/64
--- NOTE | 2020-05-27 16:40 | NUR ---
GAVE PATIENT INCENTIVE SPIROMETER AND INSTRUCTIONS FOR USAGE. PATIENT VERBALIZES UNDERSTANDING. WILL CONTINUE TO MONITOR.
--- NOTE | 2020-05-27 19:20 | NUR ---
ENDORSED TO ASSOCIATE FIELD SERVICE ENGINEER RN FOR CONTINUITY OF CARE.
--- NOTE | 2020-05-27 19:21 | NUR ---
RECEIVED PATIENT IN STABLE CONDITION FROM AM RN FOR CONTINUITY OF CARE. PATIENT ASLEEP AND IN BED. RESPIRATIONS EVEN, UNLABORED. NO C/O PAIN. NO S/S ACUTE DISTRESS. SKIN WARM, DRY. IV SITE NOTED TO LEFT AC 20G PATENT/INTACT WITH NS RUNNING AT 30ML/HR, INFUSING FLUIDS WELL. SAFETY PRECAUTIONS IN PLACE. CALL LIGHT WITHIN REACH. POC IS DISCUSSED. WILL CONTINUE TO MONITOR.
[2020-05-27 20:00] VITALS: BP 93/61
--- NOTE | 2020-05-27 22:05 | NUR ---
PT SLEEPING WELL, NO COMPLAINTS OF RESPIRATORY DISTRESS, NO COMPLAINTS OF PAIN. WILL CONTINUE TO MONITOR
[2020-05-27] MEDS ORDERED: guaiFENesin 20 MG/ML UDC PO PRN (22:55)
--- NOTE | 2020-05-27 23:45 | NUR ---
PT WOKE UP AND ASKED FOR SOME SNACK; PT GAINING APPETITE; AND DRANK SOME JUICE ANS ATE A SANDWICH.
[2020-05-28] VITALS: BP 101/65
--- NOTE | 2020-05-28 00:48 | NUR ---
PT C/O COUGHING, NOTED UNPRODUCTIVE COUGH, GIVEN ROBITUSSIN ORDERED PRN
--- NOTE | 2020-05-28 02:00 | NUR ---
PT SLEEPING, NO COMPLAINTS AT THIS TIME.
[2020-05-28] MEDS: NACL 0.9% 1,000 ML IV SCH ×2 (03:58→04:03)
[2020-05-28 04:00] VITALS: BP 102/63
--- NOTE | 2020-05-28 05:00 | NUR ---
PT REQUESTED FOR A SHOWER LATER TODAY IF DISCHARGE, WILL ENDORSE TO NEXT SHIFT
--- NOTE | 2020-05-28 07:00 | NUR ---
PT A, A AO AMBULATORY PT IN STABLE CONDITION AT THIS TIME. WILL ENDORSE TO NEXT SHIFT FOR CONTINUITY OF CARE.
--- NOTE | 2020-05-28 07:01 | NUR ---
RECEIVED REPORT FROM DRY CLEANING CHECKER NURSE INÉS-COLIN. AOX4, ON 2L/NC WITH LEFT AC #20G RUNNING NS @ 20ML/HR. DISCUSSED PLAN OF CARE AND PT VERBALIZED UNDERSTANDING. CALL LIGHT WITHIN REACH. NO S/S OF RESPIRATORY DISTRESS OR DISCOMFORT NOTED AT THIS TIME. WILL CONTINUE TO MONITOR.
[2020-05-28 08:00] VITALS: BP 104/63
[2020-05-28 08:21] LABS: BASOPHILS # (AUTO) 0.1 K/uL (0.00-0.22); BASOPHILS % (AUTO) 0.6 % (0.0-2.0); EOSINOPHILS # (AUTO) 0.1 K/uL (0-0.4); EOSINOPHILS % (AUTO) 0.6 % (0.0-4.0); HEMATOCRIT 42.3 % (36-52); HEMOGLOBIN 13.8 g/dL (12.0-18.0); MEAN CORPUSCULAR HEMOGLOBIN 31 pg (27-31); MEAN CORPUSCULAR HGB CONC 33 g/dL (33-37); MEAN CORPUSCULAR VOLUME 93.6 fL (80-94); MONOCYTES # (AUTO) 1.1 K/uL (0.8-1.0); MONOCYTES % (AUTO) 10.2 % (1.7-9.3); NEUTROPHILS # (AUTO) 8.2 K/uL (1.8-7.7); NEUTROPHILS % (AUTO) 78.6 % (42.2-75.2); PLATELET COUNT (AUTO) 187 K/uL (140-450); RED BLOOD CELL COUNT(AUTO) 4.52 MIL/uL (4.20-6.10); RED CELL DISTRIBUTION WIDTH 15.1 % (11.6-13.7); WHITE BLOOD COUNT (AUTO) 10.4 K/uL (4.8-10.8)
[2020-05-28 08:24] LABS: ANION GAP 9.3 (8-16); CARBON DIOXIDE 24.4 mmol/L (21-32); CREATININE 1.2 mg/dL (0.6-1.3); POTASSIUM 3.7 mmol/L (3.5-5.1)
[2020-05-28 08:25] LABS: TOTAL BILIRUBIN 0.8 mg/dL (0.0-1.0)
[2020-05-28] MEDS: LISINOPRIL 5 MG TAB PO SCH (09:00)
[2020-05-28 09:02] LABS: MAGNESIUM 1.9 mg/dL (1.8-2.4); PHOSPHORUS 3.3 mg/dL (2.5-4.9)
[2020-05-28] MEDS: AZITHROMYCIN 250 MG in DEXTROSE 5% 250 ML IV SCH (09:19)
[2020-05-28] MEDS: FUROSEMIDE 40 MG TAB PO SCH (09:20)
[2020-05-28] MEDS: LACTOBACILLUS RHAMNOSUS GG 1 EACH CAP PO SCH (09:20)
[2020-05-28] MEDS: ENOXAPARIN 80 MG/0.8 ML SYR SUBQ SCH (09:21)
--- NOTE | 2020-05-28 09:21 | NUR ---
SCHEDULED MEDICATIONS GIVEN AND TOLERATED WELL. CALL LIGHT WITHIN REACH. NO S/S OF RESPIRATORY DISTRESS OR DISCOMFORT NOTED AT THIS TIME. WILL CONTINUE TO MONITOR.
[2020-05-28 10:19] VITALS: BP 104/63
--- NOTE | 2020-05-28 11:30 | NUR ---
PT RESTING IN BED. CALL LIGHT WITHIN REACH. NO S/S OF RESPIRATORY DISTRESS OR DISCOMFORT NOTED AT THIS TIME. WILL CONTINUE TO MONITOR.
--- NOTE | 2020-05-28 14:30 | NUR ---
PT SIGNED DISCHARGE PAPERWORK. PT VERBALIZED UNDERSTANDING. CALL LIGHT WITHIN REACH. NO S/S OF RESPIRATORY DISTRESS OR DISCOMFORT NOTED AT THIS TIME. WILL CONTINUE TO MONITOR.
--- NOTE | 2020-05-28 16:00 | NUR ---
IV REMOVED- CATHETER INTACT. ID BANDS REMOVED. PT TAKEN TO FRONT LOBBY VIA WHEELCHAIR. BUS PASS IN HAND. ORIENTED PT TO CROSS STREETS. PT HEADED TO [address] AND PAVEL MAURICIO LOOKING FOR BUS STOP TO BE TAKEN TOWARDS THE [facility]. PT IN STABLE CONDITION AT THIS TIME.
== END 2020-05-28 16:00 | disposition home or self-care (01) | DRG 720 ==
LOC: EEVIPCON 22:41 → MED 22:41 → MIC 05-24 01:46 → MTU 05-24 20:30 → MMU 05-25 10:51
PROVIDERS: ADMIT General Practice; ATTEND General Practice
PROC: 0W993ZZ Drainage of Right Pleural Cavity, Percutaneous Approach (ICD-10-PCS; principal; 2020-05-25)
DX: A41.9 Sepsis, unspecified organism (principal); N17.0 Acute kidney failure with tubular necrosis; J96.00 Acute respiratory failure, unspecified whether with hypoxia or hypercapnia; E43 Unspecified severe protein-calorie malnutrition; I50.43 Acute on chronic combined systolic (congestive) and diastolic (congestive) heart failure; J18.9 Pneumonia, unspecified organism; E83.42 Hypomagnesemia; I08.1 Rheumatic disorders of both mitral and tricuspid valves; J91.8 Pleural effusion in other conditions classified elsewhere; I42.9 Cardiomyopathy, unspecified; E87.1 Hypo-osmolality and hyponatremia; F15.93 Other stimulant use, unspecified with withdrawal; R74.0 Nonspecific elevation of levels of transaminase and lactic acid dehydrogenase [LDH]; K76.1 Chronic passive congestion of liver; E80.6 Other disorders of bilirubin metabolism; K82.8 Other specified diseases of gallbladder; K76.0 Fatty (change of) liver, not elsewhere classified; F14.10 Cocaine abuse, uncomplicated; R94.31 Abnormal electrocardiogram [ECG] [EKG]; E86.0 Dehydration; R65.20 Severe sepsis without septic shock; Z68.24 Body mass index [BMI] 24.0-24.9, adult; Z87.891 Personal history of nicotine dependence; Z03.818 Encounter for observation for suspected exposure to other biological agents ruled out; Z72.89 Other problems related to lifestyle; Z71.51 Drug abuse counseling and surveillance of drug abuser
CPT/HCPCS: 36415; 71045; 76604; 76705; 76942; 80048; 80053; 80305; 81001; 82140; 82945; 83036; 83605; 83615; 83735; 83880; 84100; 84157; 84443; 84484; 85025; 85379; 85610; 85651; 85730; 86140; 86704; 86706; 86708; 86709; 86803; 87040; 87070; 87075; 87081; 87086; 87102; 87205; 87340; 89051; 93005; 93970; 96361; 96365; 99285; J0456; J0696; J1644; J1650; J1940; J2001; J3475; J7030; J7060; Q0092; U0003-CS